=== PATIENT | male | born 1945 | race Caucasian/White ===

== ENCOUNTER 2022-01-24 14:33 | Emergency (ER) | payer MEDICARE, MEDICAID ==
[~2022-01-24] VITALS: Ht 152.4 cm; Wt 42.7 kg
[2022-01-24 15:12] VITALS: BP 150/85
[2022-01-24 16:40] LABS: BASOPHILS % (AUTO) 0.1 % (0-1); EOSINOPHILS % (AUTO) 0.1 % (0-6); HEMATOCRIT 48.6 % (42.0-52.0); HEMOGLOBIN 16.8 g/dl (14.0-17.9); LYMPHOCYTES # (AUTO) 1.4 X10'3 (1.1-4.8); LYMPHOCYTES % (AUTO) 15.1 % (21-51); MEAN CORPUSCULAR HEMOGLOBIN 32.9 PG (27.0-31.0); MEAN CORPUSCULAR HGB CONC 34.6 g/dL (33.0-36.5); MEAN PLATELET VOLUME 7.3 FL (7.4-10.4); MONOCYTES # (AUTO) 1.1 X10'3 (0-0.9); MONOCYTES % (AUTO) 12.2 % (2-12); NEUTROPHILS # (AUTO) 6.8 X10'3 (1.8-7.7); NEUTROPHILS % (AUTO) 72.5 % (42-75); PLATELET COUNT 346 X10'3 (140-440); RED BLOOD COUNT 5.12 X10'6 (4.70-6.10); RED CELL DISTRIBUTION WIDTH 12.6 % (11.5-14.5); WHITE BLOOD COUNT 9.4 X10'3 (4.5-11.0)
[2022-01-24 16:49] LABS: ALANINE AMINOTRANSFERASE 20 U/L (12-78); ALBUMIN 2.4 G/DL (3.4-5.0); ALBUMIN/GLOBULIN RATIO 0.5 (1.1-1.5); ALKALINE PHOSPHATASE 86 IU/L (46-116); ANION GAP 14 (8-16); ASPARTATE AMINO TRANSFERASE 28 U/L (10-37); BILIRUBIN,TOTAL 0.4 MG/DL (0.1-1.0); BLOOD UREA NITROGEN 28 MG/DL (7-18); BUN/CREATININE RATIO 28.6 (5.4-32.0); CALCIUM 9.1 MG/DL (8.5-10.1); CHLORIDE 104 MMOL/L (99-107); CREATININE 0.98 MG/DL (0.60-1.10); GLUCOSE 101 MG/DL (70-104); SODIUM 139 MMOL/L (135-145); TOTAL CARBON DIOXIDE 20.7 MMOL/L (24-32); TOTAL PROTEIN 7.1 G/DL (6.4-8.2); eGFR 74 ML/MIN
[2022-01-24 17:45] LABS: PLATELET ESTIMATE NORMAL; TOTAL CELLS COUNTED 100
== END 2022-01-24 18:12 | disposition home or self-care (01) ==
LOC: ER 14:34
DX: U07.1 COVID-19 (principal); Z88.8 Allergy status to other drugs, medicaments and biological substances
CPT/HCPCS: 36415; 71045; 80053; 85007; 85025; 87502; 87503; 87635; 99284; C9803

== ENCOUNTER 2022-09-15 19:26 | Emergency (ER) | payer MEDICARE, MEDICAID ==
[~2022-09-15] VITALS: Ht 160 cm; Wt 45.5 kg
[2022-09-15 20:05] VITALS: BP 174/91; PULSE 102; RESP 16; TEMP 98.2; O2SAT 98
== END 2022-09-15 22:46 | disposition home or self-care (01) ==
LOC: ER 19:27
DX: R03.0 Elevated blood-pressure reading, without diagnosis of hypertension (principal); F32.A Depression, unspecified; Z88.8 Allergy status to other drugs, medicaments and biological substances
CPT/HCPCS: 99282

== ENCOUNTER 2023-06-27 14:24 | Observation (INO) | payer MEDICARE, MEDICAID ==
[~2023-06-27] VITALS: Ht 152.4 cm; Wt 51.6 kg
[2023-06-27] VITALS (16 sets, daily range): BP systolic 74–161; BP diastolic 43–77; PULSE 66–96; RESP 13–20; TEMP 97–97.8; O2SAT 93–98
[2023-06-27] MEDS ORDERED: diphenhydrAMINE 25mg capsule PO PRN (14:50)
[2023-06-27] MEDS ORDERED: LORazepam 0.5 MG tablet PO PRN (14:50)
[2023-06-27] MEDS ORDERED: ASPI81TA52 PO (15:10)
[2023-06-27] MEDS ORDERED: MIRT-142 PO (15:10)
[2023-06-27] MEDS ORDERED: MULT-31 PO (15:10)
[2023-06-27] MEDS ORDERED: SAW450CA7 PO (15:10)
[2023-06-27] MEDS ORDERED: CLOP75TA34 PO (15:10)
[2023-06-27] MEDS ORDERED: SIMV-42 PO (15:10)
[2023-06-27] MEDS ORDERED: TRAZ-251 PO (15:10)
[2023-06-27] MEDS ORDERED: OMEG-167 PO (15:10)
[2023-06-27] MEDS ORDERED: LOSA-415 PO (15:10)
[2023-06-27] MEDS ORDERED: LEVO50TA PO (15:10)
[2023-06-27] MEDS ORDERED: CARB15DR65 EACH EAR (15:10)
[2023-06-27] MEDS ORDERED: HYDR-3686 PO (15:10)
[2023-06-27] MEDS ORDERED: CHOL10003 PO (15:10)
[2023-06-27] MEDS ORDERED: FLO0.4C PO (15:10)
[2023-06-27] MEDS ORDERED: ACET-1025 PO (15:10)
[2023-06-27] MEDS ORDERED: LORA10TA7 PO (15:10)
[2023-06-27] MEDS ORDERED: ASCO500C17 PO (15:10)
[2023-06-27] MEDS ORDERED: AMLO2.5T4 PO (15:10)
[2023-06-27 15:13] LABS: BASOPHILS # (AUTO) 0.1 X10'3 (0-0.2); BASOPHILS % (AUTO) 1.1 % (0-1); EOSINOPHILS % (AUTO) 0.6 % (0-6); HEMATOCRIT 48.6 % (42.0-52.0); HEMOGLOBIN 16.6 g/dl (14.0-17.9); LYMPHOCYTES # (AUTO) 1.9 X10'3 (1.1-4.8); LYMPHOCYTES % (AUTO) 24.9 % (21-51); MEAN CORPUSCULAR HEMOGLOBIN 32.3 PG (27.0-31.0); MEAN CORPUSCULAR HGB CONC 34.2 g/dL (33.0-36.5); MEAN CORPUSCULAR VOLUME 94.5 FL (78-98); MEAN PLATELET VOLUME 6.5 FL (7.4-10.4); MONOCYTES # (AUTO) 0.6 X10'3 (0-0.9); MONOCYTES % (AUTO) 8.1 % (2-12); NEUTROPHILS # (AUTO) 4.9 X10'3 (1.8-7.7); NEUTROPHILS % (AUTO) 65.3 % (42-75); PLATELET COUNT 267 X10'3 (140-440); RED BLOOD COUNT 5.14 X10'6 (4.70-6.10); RED CELL DISTRIBUTION WIDTH 13.5 % (11.5-14.5); WHITE BLOOD COUNT 7.5 X10'3 (4.5-11.0)
[2023-06-27 15:25] LABS: ANION GAP 13 (8-16); APTT 30 SECONDS (22-32); BLOOD UREA NITROGEN 24 MG/DL (7-18); BUN/CREATININE RATIO 25.8 (10.0-20.0); CALCIUM 8.9 MG/DL (8.5-10.1); CHLORIDE 105 MMOL/L (99-107); CREATININE 0.93 MG/DL (0.60-1.10); GLUCOSE 89 MG/DL (70-104); INR 1.1 INR; POTASSIUM 3.6 MMOL/L (3.5-5.1); PROTHROMBIN TIME 11.3 SECONDS (9.0-12.0); SODIUM 137 MMOL/L (135-145); TOTAL CARBON DIOXIDE 19.3 MMOL/L (24-32); eCRCL 45 ML/MIN; eGFR 79 ML/MIN
[2023-06-27] MEDS ORDERED: heparin 1,000unit/ml 10ml vial 10 ML ONE (15:32)
[2023-06-27] MEDS ORDERED: atropine 0.1mg/ml 10ml syringe ONE (15:32)
[2023-06-27] MEDS ORDERED: phenylephrine 10mg/ml inj. -priapism dosing ONE (15:32)
[2023-06-27] MEDS ORDERED: DOPamine 400mg/D5W 250ml 0 ML IV ONE (15:32)
[2023-06-27] MEDS ORDERED: iohexol 350MG/ML 100ml bottle IV ONE (15:32)
[2023-06-27] MEDS ORDERED: LIDOcaine 1% 30ml preserv. free vial ONE (15:39)
[2023-06-27] MEDS ORDERED: iohexol 350 MG/ML 50ML vial IV ONE (17:10)
[2023-06-27] MEDS ORDERED: clopidogrel 300mg tablet ONE (17:17)
[2023-06-27] MEDS ORDERED: pseudoephedrine 30mg tablet PO PRN (17:50)
[2023-06-27] MEDS ORDERED: HYDROcodone/acetaminophen 10/325mg tab PO PRN (17:50)
[2023-06-27] MEDS ORDERED: HYDROcodone/acetaminophen 5mg/325mg tablet PO PRN (17:50)
[2023-06-27] MEDS ORDERED: hydrALAZINE 20mg/ml inj. IV PRN (17:50)
[2023-06-27] MEDS ORDERED: DOPamine 400mg/D5W 250ml 250 ML IV SCH (17:50)
[2023-06-27] MEDS ORDERED: acetaminophen 325mg tablet PO PRN (17:55)
[2023-06-27] MEDS: normal saline 1,000 ML IV SCH (20:02)
[2023-06-27] MEDS: atorvastatin 20mg tablet PO SCH (21:15)
[2023-06-27] MEDS: traZODone 50mg tablet PO SCH (21:15)
[2023-06-27] MEDS: OMEGA-3/DHA/EPA/FISH OIL 1 EACH CAPSULE.DR PO SCH (21:15)
[2023-06-27] MEDS: mirtazapine 15mg tablet PO SCH (21:15)
[2023-06-28 02:00] VITALS: BP 117/57; PULSE 58; RESP 18; TEMP 98.7; O2SAT 97
[2023-06-28 07:00] VITALS: BP 114/56; PULSE 62; RESP 15; TEMP 97.9; O2SAT 97
[2023-06-28 08:00] VITALS: RESP 14; O2SAT 94
[2023-06-28] MEDS: multivitamins, therapeutics tablet PO SCH (08:34)
[2023-06-28] MEDS: aspirin 81mg, enteric-coated 1 TAB TABLET.DR PO SCH (08:34)
[2023-06-28] MEDS: loratadine 10mg tablet PO SCH (08:34)
[2023-06-28] MEDS: clopidogrel 75mg tablet PO SCH (08:34)
[2023-06-28] MEDS: cholecalciferol (vitamin D3) 1,000 unit (25mcg) tablet PO SCH (08:34)
[2023-06-28] MEDS: tamsulosin 0.4mg capsule PO SCH (08:34)
[2023-06-28] MEDS: hydrOXYzine 25 MG tablet PO SCH (08:35)
[2023-06-28] MEDS: levoTHYROXINE 25mcg tablet PO SCH (08:35)
== END 2023-06-28 10:44 | disposition home or self-care (01) ==
LOC: SSTAY O 14:24 → PCU 3S 17:49 → SSTAY O 17:49 → PCU 3S 17:49 → SSTAY O 06-28 10:44
PROVIDERS: ADMIT Student in an Organized Health Care Education/Training Program; ATTEND Student in an Organized Health Care Education/Training Program
DX: I65.23 Occlusion and stenosis of bilateral carotid arteries (principal); I10 Essential (primary) hypertension; E78.00 Pure hypercholesterolemia, unspecified; E03.9 Hypothyroidism, unspecified; E78.5 Hyperlipidemia, unspecified; Z79.82 Long term (current) use of aspirin; Z79.890 Hormone replacement therapy; Z79.899 Other long term (current) drug therapy; Z88.8 Allergy status to other drugs, medicaments and biological substances; Z79.02 Long term (current) use of antithrombotics/antiplatelets
CPT/HCPCS: 36415; 37215; 80048; 85025; 85610; 85730; 87081; 93005; C1876; G0378; J0461; J1644; J2371; J3490; J7030; Q0177; Q9967; 36222; 36223; 37247; A6590; C1725; C1760; C1884; C1894; J1265; J2370

== ENCOUNTER 2024-12-13 12:39 | Emergency (ER) | payer MEDICARE, MEDICAID ==
[~2024-12-13] VITALS: Ht 160 cm; Wt 46.9 kg
[~2024-12-13 12:39] MED LIST: ACET-1025 PO; AMLO2.5T4 PO; ASCO500C17 PO; ASPI81TA52 PO; CARB15DR65 EACH EAR; CHOL10003 PO; CLOP75TA34 PO; HYDR-3686 PO; LEVO50TA PO; LORA10TA7 PO; LOSA-415 PO; MIRT-142 PO; MULT-31 PO; OMEG-167 PO; SAW450CA7 PO; SIMV-42 PO; TAMS-55 PO; TRAZ-251 PO
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
--- NOTE | 2024-12-13 16:23 | RADIOLOGY REPORT ---
CLINICAL HISTORY: contusion TECHNIQUE: Single view of the chest was obtained. COMPARISON: None FINDINGS: The heart size and pulmonary vasculature are normal. There are bibasilar opacities. IMPRESSION: Bibasilar opacities, favor atelectasis.
--- NOTE | 2024-12-13 16:41 | RADIOLOGY REPORT ---
CLINICAL INDICATION: contusion TECHNIQUE: DI HIP,BI,CMPLT(AP PELVIS) Comparison: None FINDINGS/IMPRESSION: : There is no evidence of acute fracture or dislocation. Soft tissues are unremarkable. 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
[2024-12-13 16:47] LABS: MEAN PLATELET VOLUME 6.7 FL (7.4-10.4); RED CELL DISTRIBUTION WIDTH 13.7 % (11.5-14.5)
[2024-12-13 16:54] LABS: CREATININE 0.73 MG/DL (0.60-1.10); TOTAL CARBON DIOXIDE 27.4 MMOL/L (24-32); eCRCL 54 ML/MIN; eGFR > 90 ML/MIN
[2024-12-13 17:40] VITALS: BP 78/49; PULSE 60; O2SAT 96
[2024-12-13 18:30] VITALS: RESP 18; TEMP 96.7
== END 2024-12-13 18:31 | disposition home or self-care (01) ==
LOC: ER 12:41
DX: S30.11XA Contusion of abdominal wall, initial encounter (principal); S20.219A Contusion of unspecified front wall of thorax, initial encounter; F32.A Depression, unspecified; Z79.01 Long term (current) use of anticoagulants; Z88.8 Allergy status to other drugs, medicaments and biological substances; Z79.899 Other long term (current) drug therapy; X58.XXXA Exposure to other specified factors, initial encounter; Y93.89 Activity, other specified; Y92.89 Other specified places as the place of occurrence of the external cause; Y99.8 Other external cause status
CPT/HCPCS: 36415; 71045; 73521; 80053; 85025; 99284